=== PATIENT | male | born 1950 | race Caucasian/White ===

== ENCOUNTER 2020-04-22 08:21 | Outpatient (CLI) | payer OTHER, MEDICARE, SELFPAY ==
--- NOTE | 2020-04-22 09:00 | CT_ITS ---
WS: [id number] CT CHEST WITH INTRAVENOUS CONTRAST HISTORY: ascending aortic aneurysm TECHNIQUE: Contiguous 5 mm axial imaging performed on the thorax. Coronal and sagittal reformats are submitted. All CT scans at [facility] use at least one of these dose optimization techniq ues: automated exposure control; mA and/or kV adjustment per patient size (includes targeted exams wh ere dose is matched to clinical indication); or iterative reconstruction. CONTRAST: Omnipaque 300; 95 mL IV. DLP: 835.9 mGy.cm COMPARISON: None available. Lungs and central airway: Mild hyperexpansion from emphysema. There is some very mild groundglass att enuation in the posterior RIGHT upper lobe. Additional groundglass attenuation and minimal atelectasi s superior segment LEFT lower lobe and at the RIGHT costophrenic angle. Benign granuloma LEFT lower l obe. No pulmonary mass or nodule. Pleura: Normal. No pleural effusion. Heart and pericardium: Top normal size to slightly enlarged. No pericardial effusion. Moderate altamirano ry artery calcification. Mediastinum and pamela: No mediastinum or hilar adenopathy. Vessels: Normal size pulmonary artery. Ascending aorta is normal at 3.8 cm. No aneurysm. Normal calib er descending aorta. No dissection. Chest wall and lower neck: No soft tissue masses. Upper abdomen: No adrenal mass. Negative gallbladder. Small hiatal hernia. Osseous structures: Mild increase in thoracic kyphosis. Mild spondylitic changes thoracic spine. CT/CT chest w con* [id number] IMPRESSION: 1. No ascending aortic aneurysm. Maximum diameter ascending aorta is 3.8 cm. N o dissection. 2. Moderate coronary artery calcification. 3. Groundglass opacifications RIGHT upper lobe, lingula and at the RIGHT costo phrenic angle. Suspect mild pneumonitis or viral type pneumonia.
--- NOTE | 2020-04-22 09:30 | USCV_ITS ---
Sosa Sutton Age: 69 Gender: M : 1950 Exam Date: 04/22/2020 08:47 Ordering Phys: Carrington Galarza MD (Andy) ([email or web address]) Technologist: Maria Elena Saucedo [place] [facility] [place]: ascending aortic aneurysm BP: 137 / 73 HR: 92 Rhythm: Sinus Technical Quality: Adequate MEASUREMENTS (Male / Female) Normal Values 2D ECHO LV Diastolic Diameter PLAX 4.3 cm 4.2 - 5.9 / 3.9 - 5.3 cm LV Systolic Diameter PLAX 3.0 cm LV Chamber Size 3.6 cm IVS Diastolic Thickness 1.1 cm 0.6 - 1.0 / 0.6 - 0.9 cm IVS Systolic Thickness 1.4 cm LVPW Diastolic Thickness 1.9 cm 0.6 - 1.0 / 0.6 - 0.9 cm LVPW Systolic Thickness 1.9 cm RV Chamber Size 3.2 cm LVOT Diameter 2.1 cm LV Ejection Fraction 2D Teich 58.0 % LV Ejection Fraction MOD 2C 73.7 % LV Ejection Fraction 2C AL 74.2 % LA Diameter 3.2 cm LA Width 2.7 cm LA Height 4.6 cm RA Width 2.8 cm RA Height 4.7 cm Aorta at Sinotubular Diameter 4.0 cm M-MODE LV Diastolic Diameter MM 5.1 cm 4.2 - 5.9 / 3.9 - 5.3 cm LV Systolic Diameter MM 3.8 cm LV Ejection Fraction MM Teich 52.4 % IVS Diastolic Thickness MM 1.1 cm 0.6 - 1.0 / 0.6 - 0.9 cm IVS Systolic Thickness MM 1.4 cm LVPW Diastolic Thickness MM 1.2 cm 0.6 - 1.0 / 0.6 - 0.9 cm LVPW Systolic Thickness MM 1.6 cm Aortic Annulus Diameter 4.1 cm LA Ao Ratio MM 0.9 MV E Point Septal Separation 0.6 cm DOPPLER AV Peak Velocity 135.0 cm/s LVOT Peak Velocity 114.0 cm/s AV Area Cont Eq vti 3.1 cm squared AV Area Cont Eq pk 2.8 cm squared MV Area PHT 2.8 cm squared Mitral E to A Ratio 0.8 MV E' Velocity 31.0 cm/s Mitral E to MV E' Ratio 6.5 Mitral E to LV E' Lateral Ratio 5.0 Mitral E to LV E' Septal Ratio 9.2 TR Peak Velocity 308.3 cm/s TR Peak Gradient 38.0 mmHg TV Peak E Velocity 50.0 cm/s Right Atrial Pressure 3.0 mmHg Pulmonary Artery Systolic Pressu 41.0 mmHg PV Peak Velocity 85.0 cm/s RV Acceleration Time 0.1 s RV Ejection Time 0.3 s RV AcT/ET 0.4 FINDINGS Left Ventricle Normal left ventricular cavity size. Normal left ventricular systolic function. No regional wall motion abnormalities. Left ventricular ejection fraction is estimated at 55 %. Grade I/IV diastolic dysfunction (abnormal relaxation filling pattern), normal to mildly elevated filling pressures. Right Ventricle The right ventricle is normal in size and function. RVSP could not be calculated due to incomplete tricuspid regurgitation velocity profile. Right Atrium The right atrium is normal in size. Left Atrium The left atrium is normal in size. Mitral Valve Structurally normal mitral valve without significant stenosis or prolapse. There is no mitral regurgitation. Aortic Valve Structurally normal aortic valve without significant sclerosis or stenosis. There is no aortic regurgitation. Tricuspid Valve Structurally normal tricuspid valve without significant stenosis or regurgitation. Pulmonary artery systolic pressure is normal. Pulmonic Valve Structurally normal pulmonic valve without significant stenosis. There is no pulmonic regurgitation. Pericardium Normal pericardium without effusion. Aorta Normal ascending aorta dimension. CONCLUSIONS 1-Normal left ventricular cavity size. Normal left ventricular systolic function. No regional wall motion abnormalities. Left ventricular ejection fraction is estimated at 55 %. Grade I/IV diastolic dysfunction (abnormal relaxation filling pattern), normal to mildly elevated filling pressures. 2-No significant valve abnormalities. 3-There is no pericardial effusion. 4-The right ventricle is normal in size and function. RVSP could not be calculated due to incomplete tricuspid regurgitation velocity profile. 5-Right atrial pressure is around 5 mm of mercury. 6-There are no prior echocardiogram studies to compare. Jairon Bruce MD (Electronically Signed) Final Date: 22 April 2020 19:30 S
[2020-04-22 09:55] LABS: Glomerular Filtration Rate 83.9 mL/min (90-130)
[2020-04-22] MEDS: iohexol 300 mg/mL 100 mL Btl IV (10:11)
== END 2020-04-22 08:22 | disposition home or self-care (01) ==
PROVIDERS: PCP Family Medicine; Visit Provider Thoracic Surgery (Cardiothoracic Vascular Surgery)
DX: I71.2 Thoracic aortic aneurysm, without rupture (principal); I07.1 Rheumatic tricuspid insufficiency; I25.10 Atherosclerotic heart disease of native coronary artery without angina pectoris
CPT/HCPCS: 36415; 71260; 82565; 93306

== ENCOUNTER → 2020-10-12 14:13 | Outpatient (BNVA) | payer MEDICARE, SELFPAY | PROVIDERS: PCP Family Medicine; Referring Provider Family Medicine; Visit Provider Podiatrist Foot & Ankle Surgery | DX: M25.572 Pain in left ankle and joints of left foot (principal) | CPT/HCPCS: 73630 ==

== ENCOUNTER 2021-12-22 07:53 | Outpatient (CLI) | payer OTHER, SELFPAY ==
--- NOTE | 2021-12-22 08:30 | CT_ITS ---
WS: [id number] CTA THORACIC AORTA WITH AND WITHOUT CONTRAST HISTORY: thoracic aortic aneurysm TECHNIQUE: CT imaging of the thorax is performed with and without contrast. After noncontrast imaging is performed, CT angiogram is performed during injection of Omnipaque 300; 95 mL IV.. Sagittal and c oronal reconstructions, sagittal and coronal MIP imaging is submitted. All CT scans at [facility] use at least one of these dose optimization techniques: automated exposure control; mA and/or kV adjustment per patient size (includes targeted exams where dose is matched to clinical indication); or iterative reconstruction. DLP: 1263.09 mGy.cm COMPARISON: 04/22/2020 Very good opacification of the thoracic aorta with contrast. The maximum ascending diameter is 4.1 cm . Descending thoracic aorta is 2.6 cm. The diameter has increased approximately 3 mm since the prior examination. There is minimal dilatation. Minimal atherosclerotic disease. No dissection or ulceratin g plaque. No dissection. LEFT vertebral artery arises directly from the aorta. Normal size pulmonary artery. No filling defect. Heart size is normal. No mediastinal or hilar adenopathy. Central LEFT jeff g granuloma. No mass or pneumonia. No pericardial or pleural effusions. Small hiatal hernia. Visualized upper abdomen is negative. No adrenal mass. Negative gallbladder. No destructive bone lesions. CT/CT angio chest [id number] IMPRESSION: 1. 3 mm increases in diameter of the ascending thoracic aorta now measuring 4. 1 cm. This represents a very minimal dilatation of the ascending aorta. No sign ificant atherosclerotic plaque. 2. Small hiatal hernia. 3. No pericardial or pleural effusions.
[2021-12-22 08:41] LABS: Blood Urea Nitrogen 16 mg/dL (8-23); Glomerular Filtration Rate 73.9 mL/min (90-130)
[2021-12-22] MEDS: iohexol 350 mg/mL 100 mL Btl IV (08:52)
== END 2021-12-22 07:54 | disposition home or self-care (01) ==
LOC: RAD 07:53
PROVIDERS: PCP Family Medicine; Visit Provider Thoracic Surgery (Cardiothoracic Vascular Surgery)
DX: I71.2 Thoracic aortic aneurysm, without rupture (principal); K44.9 Diaphragmatic hernia without obstruction or gangrene
CPT/HCPCS: 71275; 82565; 84520

== ENCOUNTER → 2022-06-29 09:26 | Outpatient (BNVA) | payer OTHER, SELFPAY | PROVIDERS: PCP Nurse Practitioner; Referring Provider Nurse Practitioner; Visit Provider Specialist | DX: G56.03 Carpal tunnel syndrome, bilateral upper limbs (principal) | CPT/HCPCS: 95910; 95912 ==

== ENCOUNTER → 2022-09-12 09:09 | Outpatient (BNVA) | payer OTHER, SELFPAY | PROVIDERS: PCP Nurse Practitioner; Referring Provider Nurse Practitioner; Visit Provider Student in an Organized Health Care Education/Training Program | DX: G56.03 Carpal tunnel syndrome, bilateral upper limbs (principal) | CPT/HCPCS: 73110 ==

== ENCOUNTER 2022-09-12 14:10 | Outpatient (CLI) | payer OTHER, SELFPAY | END 2022-09-12 14:11 | disposition home or self-care (01) | LOC: SPT 14:11 | PROVIDERS: PCP Nurse Practitioner; Visit Provider Student in an Organized Health Care Education/Training Program | DX: Z46.89 Encounter for fitting and adjustment of other specified devices (principal); G56.03 Carpal tunnel syndrome, bilateral upper limbs | CPT/HCPCS: 20526; 20610; 97760; 99204; L3908 ==

== ENCOUNTER 2022-12-12 14:06 | Outpatient (CLI) | payer OTHER, SELFPAY ==
--- NOTE | 2022-12-12 14:30 | CT_ITS ---
WS: [id number] CTA THORACIC TECHNIQUE: Contrast enhanced CTA of the thoracic aorta with coronal and sagittal reformatted images a nd maximum intensity projection (MIP) images. CLINICAL INFORMATION: ascending aortic aneurysm COMPARISON: CTA chest December 22, 2021 DLP: 685.[address] scans at [facility] use at least one of these dose optimization techniques: automated e xposure control; mA and/or kV adjustment per patient size (includes targeted exams where dose is matc hed to clinical indication); or iterative reconstruction. FINDINGS: Ascending thoracic aorta measures 4.1 cm. This is unchanged since December 22, 2021. Normal caliber aorti c arch and descending thoracic aorta. Celiac and SMA are patent in the upper abdominal aorta. Small e sophageal hiatal hernia. Tiny hepatic cyst in the dome the liver. Tiny RIGHT adrenal adenoma. LEFT ad renal gland is normal. Normal thyroid enhancement. No mediastinal or hilar lymphadenopathy. No axilla ry lymphadenopathy. Mild chronic emphysematous changes. No acute pulmonary infiltrates. Calcified granuloma LEFT lower lo be. Subsegmental atelectasis in the lung bases. CT/CT angio chest [id number] IMPRESSION: 1. Ascending thoracic aorta measures 4.1 cm. This is unchanged since December 22, 2021. 2. No acute pulmonary infiltrates. 3. Small esophageal hiatal hernia. 4. No other significant interval changes.
[2022-12-12 15:09] LABS: Blood Urea Nitrogen 19 mg/dL (8-23)
[2022-12-12] MEDS: iohexol 350 mg/mL 500 mL Btl (per mL) IV (15:20)
== END 2022-12-12 14:07 | disposition home or self-care (01) ==
LOC: RAD 14:08
PROVIDERS: PCP Nurse Practitioner; Visit Provider Thoracic Surgery (Cardiothoracic Vascular Surgery)
DX: I71.21 Aneurysm of the ascending aorta, without rupture (principal); K44.9 Diaphragmatic hernia without obstruction or gangrene
CPT/HCPCS: 71275; 82565; 84520; Q9967

== ENCOUNTER → 2023-01-13 09:06 | Outpatient (BNVA) | payer MEDICARE, SELFPAY | PROVIDERS: PCP Family Medicine; Visit Provider Student in an Organized Health Care Education/Training Program | DX: G56.03 Carpal tunnel syndrome, bilateral upper limbs (principal) | CPT/HCPCS: 99214 ==

== ENCOUNTER → 2023-01-19 09:23 | Outpatient (BNVA) | payer OTHER, SELFPAY | PROVIDERS: PCP Family Medicine; Visit Provider Thoracic Surgery (Cardiothoracic Vascular Surgery) | DX: I71.21 Aneurysm of the ascending aorta, without rupture (principal) | CPT/HCPCS: 99213 ==

== ENCOUNTER → 2023-01-24 07:46 | Outpatient (BNVA) | payer OTHER, SELFPAY | PROVIDERS: PCP Family Medicine; Visit Provider Physician Assistant | DX: M65.322 Trigger finger, left index finger (principal) | CPT/HCPCS: 99214 ==

== ENCOUNTER 2023-02-02 06:11 | Day surgery (SDC) | payer OTHER, SELFPAY ==
[2023-02-01 12:16] VITALS: BMI 25.7
[2023-02-02] VITALS (7 sets, daily range): BP systolic 111–177; BP diastolic 74–93; PULSE 49–97; RESP 10–17; TEMP 36.1–36.6; O2SAT 95–99
[2023-02-02] MEDS: ketorolac 30 mg/mL INJ IVP (06:33)
[2023-02-02] MEDS: sodium chloride 0.9% 1,000 ML 30 ML IV (06:33)
[2023-02-02] MEDS: acetaminophen 1,000 MG/100 ML PIGGYBACK 400 MG IV (06:34)
--- NOTE | 2023-02-02 07:06 | W.PM.OPSUD ---
Surgery/Procedure H&P Update DATE OF PROCEDURE: February 02, 2023 DATE H&P PERFORMED: 01/24/23 CHANGES TO PREVIOUS DOCUMENTATION: None. No change in HPI visit from 01/24/2023. Patient has left carpal tunnel syndrome and left index finger trigger. He understands the ins and outs of procedure the risk benefits complication alternatives of surgery through shared decision-making elects proceed with surgical intervention of left carpal tunnel release and left index finger trigger release. PREOP DIAGNOSIS: Left Carpal Tunnel syndrome and left index finger trigger PRIMARY INDICATION FOR PROCEDURE: Left carpal tunnel syndrome and left index trigger finger PLANNED PROCEDURE: Operation Date: 02/02/23 07:55 Proposed Procedures p LEFT CARPAL TUNNEL RELEASE 82353, G56.03(Left) - See Cooper DO s Left index finger trigger release 04041,M65.322(Left) - See Cooper DO
--- NOTE | 2023-02-02 07:13 | ANES.PREANE2 ---
Pre-Anesthetic Assessment Height/Weight: Height 1.88 m Weight 90.718 kg Temp Pulse Resp BP Pulse Ox O2 Del Method 97.9 F 64 17 177/93 97 Room Air 02/02/23 06:19 02/02/23 06:19 02/02/23 06:19 02/02/23 06:19 02/02/23 06:19 02/02/23 06:19 Preop Diagnosis: Left Carpal Tunnel syndrome and left index finger trigger Operation Date: 02/02/23 07:55 Proposed Procedures p LEFT CARPAL TUNNEL RELEASE 20682, G56.03(Left) - See Bedford, DO s Left index finger trigger release 52818,M65.322(Left) - See Bedford, DO Familial anesthetic complications: None Was Beta Josiah taken within 24 hours: N/A Was Clonidine taken within 24 hours: N/A Last intake: Intake Last Liquid Date 02/01/23 Last Liquid Time 17:30 Last Solid Date 02/01/23 Last Solid Time 17:30 Social No alcohol and No tobacco Exam alert, oriented x 3, clear to auscultation bilaterally and regular rate & rhythm Airway Mallampati: Class III Dentition: full CV/HEM AAA monitored, stable GI Gastroesophageal Reflux Disease (occasional heartburn) Anesthetic Plan ASA status: 2 Anesthesia: MAC Risk of > 500 ml blood loss (7ml/kg in children): No Medications/Allergies Home Medications Medication Instructions Recorded Confirmed Last Taken Type omeprazole 20 mg tablet,delayed 20 mg PO DAILY PRN Indigestion 06/29/22 02/02/23 01/26/23 History release 2 Cock up Splints #1 ea 09/12/22 01/24/23 Unknown Rx Allergies Allergy/AdvReac Type Severity Reaction Status Date / Time terbinafine [From Lamisil] Allergy Severe Unresponsiv Verified 01/24/23 07:51 e Current Medications Generic Name Dose Route Start Last Admin Trade Name Freq PRN Reason Stop Dose Admin Sodium Chloride 1,000 mls @ 30 mls/hr 02/02/23 06:15 02/02/23 06:33 Sodium Chloride 0.9% IV 02/03/23 06:14 30 mls/hr .Q24H JANNIE Administration PFSH Anesthesia Medical History Ascending aortic aneurysm Surgical History No pertinent past surgical history Family History Other Ascending aortic aneurysm Social History Smoking and tobacco status: never smoked Alcohol intake: never Substance/Drug Use: never Lives independently: Yes Household members: spouse Housing: House Marital status: Marital status details: 09/04/1976 Additional social history: Lizbet Rogers is daughter Data Anesthesia Cardiac Studies: Echocardiogram Ultrasound 04/22/20
[2023-02-02] MEDS: ceFAZolin 2,000 MG in sodium chloride 0.9% (plus) 50 ML 100 MG IV (07:52)
[2023-02-02] MEDS: BUPivacaine 0.5% INJ 10 mL INJECTION (08:28)
[2023-02-02] MEDS: ROPivacaine 0.5% SDV 30 mL 150 MG INJECTION (08:28)
[2023-02-02] MEDS: lidocaine-epi 1% 20 mL INJ INJECTION (08:28)
--- NOTE | 2023-02-02 08:33 | PM.OP2 ---
Brief Operative Note Date of procedure: 02/02/23 Pre-op diagnosis: Left carpal tunnel syndrome, left index finger trigger Post-op diagnosis: same Procedure Done: Left carpal tunnel release Left index finger trigger release Surgeon: See Cooper Estimated blood loss (mL): 2 Complications: None Post-op Plan: Patient taken to PACU in stable condition recovering well pain controlled. Patient received appropriate discharge instructions as well as pain medication postoperatively. We will follow-up in the orthopedic office in 2 weeks. Condition: stable Disposition: same day Coding Level of Care Code Acute Code for Lashonda Taylor
--- NOTE | 2023-02-02 08:34 | P.PCN_ITS ---
PACU note Narrative: Patient taken to PACU in stable condition recovering well pain controlled. Dressings on in place clean dry and intact. Patient's fingertips are warm well- perfused brisk cap refill less than 2 seconds patient has decreased sensation to the hand secondary to local anesthesia. Patient is able to wiggle fingers. Exam: awake Disposition: discharged
--- NOTE | 2023-02-02 08:35 | PM.OP ---
Operative Report Date of procedure: February 02, 2023 Surgeon: See Cooper DO Procedure: Post-op diagnosis: Same Procedure done: 1.?Left carpal tunnel release 2. Left index finger trigger release Surgeon: See Cooper DO Anesthesia: MAC (Local) Estimated blood?loss: [2mL Tourniquet time [12]minutes IV fluids: See anesthesia record Complications: None Findings: See operative report narrative Condition: stable Disposition: same day Brief History: Patient is a pleasant [72]year-old [male?with?left carpal tunnel syndrome and left index finger trigger.? Patient has been worked up in the outpatient setting findings and physical examination consistent with this.? Patient nerve?conduction studies consistent with carpal tunnel syndrome.? We detailed?out?patient's risk benefits complication alternatives with surgical and?nonsurgical treatment options. Through shared decision making, patient?agrees to proceed with surgical intervention of the?left carpal tunnel release .? Patient understands and agrees with current plan.? All questions answered.? Patient elects to proceed with surgical intervention with carpal tunnel release. Procedure: Patient seen and evaluated in the preoperative holding area.? Consent was reviewed and signed with patient.? Correct extremity was marked.? Patient was seen evaluated by the anesthesia department once cleared for surgery was brought back to the operative suite.? Patient was kept on [facility] in supine position all bony prominences were well-padded patient properly secured to the bed.??Left upper extremity was then placed onto an armboard.? A nonsterile tourniquet was applied to the?left upper arm.? Patient underwent anesthesia per the anesthesia department.? Patient's?left upper extremity was then prepped and draped in standard orthopedic fashion.? Final timeout performed.? Patient received appropriate preoperative antibiotics. Under sterile aseptic technique patient received?local anesthesia over the preplanned carpal tunnel incision site and left index finger trigger incision. Esmarch was used to exsanguinate the?left upper extremity and tourniquet was insufflated to 250 mmHg. A standard mini open?left carpal tunnel incision was made.? Starting distally at Richardson's cardinal?line in?line with the fourth ray extending proximally distal to the wrist crease centered over the carpal tunnel.? Sharp scalpel incision was made through skin and subcutaneous tissue.? Self-retaining retractor was placed and the palmar fascia was identified.? This was then split?longitudinally and direct visualization of the transverse carpal?ligament was then made.? I then utilizing scalpel feathered through the transverse carpal?ligament until I entered the floor of the transverse carpal tunnel?ligament into the carpal tunnel.? Next I switched to dissection scissors and completed my release of the transverse carpal?ligament distally with care to protect the recurrent motor branch.? I completely released into the palmar fat and until no entrapment was noted distally.? Care was made to protect the superficial palmar arch during my distal dissection.? Next attention was made towards the proximal dissection I placed a nasal speculum proximally to retract all soft tissue with direct visualization of the transverse carpal ligament proximally. Next I then placed a Rapelje underneath the transverse carpal tunnel?ligament to protect the contents of the carpal tunnel and subsequently utilizing dissection scissors under?loupe magnification completely released the transverse carpal?ligament proximally into the median antebrachial fascia.? Care was made to protect the palmar cutaneous branch by keeping my scissors curved ulnarly.? Once completely released, I then placed my Rapelje and had appropriate decompression of the carpal tunnel proximally as well as distally.? I then inspected the contents of the carpal tunnel which showed an hourglass shape of the median nerve showing its compression.? No masses were noted.? Tendons appeared healthy.? Wound was then thoroughly irrigated.? Attention then turned towards left index finger trigger release. Once appropriately anesthetized a standard oblique incision was made centering over the A1 juli following patient's flexor crease.? Sharp scalpel incision was made only through skin and then switched to Littler dissection scissors and spread longitudinally directly over the flexor tendon sheath.? I then mobilized both radially and ulnarly and Kasdan retractors were used and placed by my assistant news director to protect neurovascular bundle.? Next I visualized the A1 juli and this was incised with a scalpel.? I then switched to dissection scissors and released the A1 juli both proximally as well as distally to its entirety.? Significant tendon sheath fluid was noted consistent with inflammation.? Mild fraying of the flexor tendons noted but no tear.? At this point I utilized a rag nail and pulled the tendons FDS and FDP out of the incision and no?triggering was noted.? I then had anesthesia wake up the patient and patient was able to actively flex and extend with no?triggering.? This point thorough irrigation was performed.? Tourniquet deflated.? Hemostasis satisfactory with bipolar electrocautery.? I then closed the incisions with interrupted nylon stitches.? Xeroform 4 x 4's and a bulky soft dressing was applied to the?left upper extremity.? Patient was then awakened from anesthesia and taken to PACU in stable condition.? Patient tolerated procedure without complications. Disposition: Patient taken to PACU in stable condition recovering well.? Dressing clean dry and intact.? Patient will receive appropriate discharge instructions as well as pain medication postoperatively.? Patient to follow-up with me in the office in 2 weeks.? They understand they may be weightbearing as tolerated to the?left hand.? Patient should keep incision clean dry and intact.? Patient understands if any questions or concerns may contact the office.
--- NOTE | 2023-02-02 09:50 | ANE.PACU2 ---
Inpatient post-anesthesia follow up: Airway intact: Yes Vital signs: Temperature 97.7 F Pulse Rate 49 Respiratory Rate 16 Blood Pressure 147/89 Pulse Oximetry 98 Oxygen Delivery Me thod Room Air Oxygen Flow Rate 6 Fraction of Inspir ed Oxygen Hydration adequate: Yes Nausea and vomiting: No Pain level: 1 Mental status: Baseline
== END 2023-02-02 09:50 | disposition home or self-care (01) ==
PROVIDERS: PCP Family Medicine; Visit Provider Student in an Organized Health Care Education/Training Program
PROC: (CPT 64721; principal; 2023-02-02 07:45)
PROC: (CPT 26055; 2023-02-02 07:45)
DX: G56.02 Carpal tunnel syndrome, left upper limb (principal); M65.322 Trigger finger, left index finger; K21.9 Gastro-esophageal reflux disease without esophagitis
CPT/HCPCS: 26055; 64721; J0131; J0690; J1885; J2371; J2704; J2795; J3010; J3490; J7030

== ENCOUNTER → 2023-02-21 07:10 | Outpatient (BNVA) | payer OTHER, SELFPAY | PROVIDERS: PCP Family Medicine; Visit Provider Student in an Organized Health Care Education/Training Program | DX: M65.322 Trigger finger, left index finger (principal); G56.03 Carpal tunnel syndrome, bilateral upper limbs | CPT/HCPCS: 99213 ==

== ENCOUNTER → 2023-05-17 10:29 | Outpatient (BNVA) | payer OTHER, SELFPAY | PROVIDERS: PCP Family Medicine; Visit Provider Nurse Practitioner Family | DX: L57.0 Actinic keratosis (principal); L82.0 Inflamed seborrheic keratosis; L85.3 Xerosis cutis; L82.1 Other seborrheic keratosis; L81.4 Other melanin hyperpigmentation; L57.8 Other skin changes due to chronic exposure to nonionizing radiation | CPT/HCPCS: 17000; 17110; 99213 ==

== ENCOUNTER → 2023-05-26 10:52 | Outpatient (BNVA) | payer OTHER, SELFPAY | PROVIDERS: PCP Family Medicine; Visit Provider Student in an Organized Health Care Education/Training Program | DX: G56.01 Carpal tunnel syndrome, right upper limb (principal) | CPT/HCPCS: 20526; 20600; 99214; J3301; J3490 ==

== ENCOUNTER → 2023-07-25 09:36 | Outpatient (BNVA) | payer OTHER, SELFPAY | PROVIDERS: PCP Internal Medicine; Visit Provider Nurse Practitioner Family | DX: L57.0 Actinic keratosis (principal); L85.3 Xerosis cutis; L82.1 Other seborrheic keratosis; L81.4 Other melanin hyperpigmentation; L57.8 Other skin changes due to chronic exposure to nonionizing radiation | CPT/HCPCS: 17000; 99213 ==

== ENCOUNTER 2023-09-21 09:10 | Outpatient (CLI) | payer OTHER, SELFPAY ==
--- NOTE | 2023-09-21 09:15 | USCV_ITS ---
Sosa Sutton Age: 73 Gender: M : 1950 Exam Date: 09/21/2023 09:27 Ordering Phys: Jessica Zavaleta Technologist: ANN-MARIE Exam Location: [facility] – [place] Indication: Screening HISTORY: Diameter (cm) AP x Transverse x Length Velocity (cm/s) Waveform Prox Aorta: 1.67 x 2.08 x 103.20 Triphasic Mid Aorta: 1.65 x 1.90 x 87.90 Triphasic Distal Aorta: 1.73 x 2.03 x 69.70 Triphasic Right Iliac Prox: 1.09 x 1.03 x 128.30 Triphasic Left Iliac Prox: 1.06 x 1.07 x 134.90 Triphasic Stent Prox Landing x x Aneurysmal Sac Max x x Lt Lat Sac Dim Rt Lat Sac Dim Stent Dist Landing x x Right Iliac Stent x x Left Iliac Stent x x Right Renal Art Left Renal Art FINDINGS: Comparison: none available. No evidence of abdominal aortic or bilateral iliac aneurysm. Ectatic abdominal aorta with evidence of atherosclerotic plaque noted. CONCLUSIONS No evidence of abdominal aortic aneurysm. Dr. Sandra Gonzalez DO (Electronically Signed) Final Date: 21 September 2023 10:22 S
== END 2023-09-21 09:11 | disposition home or self-care (01) ==
LOC: RAD 09:11
PROVIDERS: PCP Internal Medicine; Visit Provider Nurse Practitioner
DX: Z13.6 Encounter for screening for cardiovascular disorders (principal)
CPT/HCPCS: 76706

== ENCOUNTER → 2023-11-21 09:00 | Outpatient (BNVA) | payer OTHER, SELFPAY | PROVIDERS: PCP Internal Medicine; Visit Provider Student in an Organized Health Care Education/Training Program | DX: G56.01 Carpal tunnel syndrome, right upper limb (principal) | CPT/HCPCS: 20600; 99214; J3301; J3490 ==

== ENCOUNTER → 2024-02-27 12:52 | Outpatient (BNVA) | payer OTHER, SELFPAY | PROVIDERS: PCP Internal Medicine; Visit Provider Student in an Organized Health Care Education/Training Program | DX: G56.01 Carpal tunnel syndrome, right upper limb (principal) | CPT/HCPCS: 99214 ==

== ENCOUNTER 2024-03-18 11:50 | Day surgery (SDC) | payer OTHER, SELFPAY ==
[2024-03-18] VITALS (9 sets, daily range): BP systolic 114–139; BP diastolic 59–92; PULSE 53–64; RESP 16–18; TEMP 36.1–36.8; O2SAT 95–100; BMI 25.7
--- NOTE | 2024-03-18 12:18 | ANES.PREANE2 ---
Pre-Anesthetic Assessment Height/Weight: Height 1.88 m Operation Date: 03/18/24 13:30 Proposed Procedures p Carpal Tunnel Release(Right) - See Cooper DO Familial anesthetic complications: none Was Beta Josiah taken within 24 hours: N/A Was Clonidine taken within 24 hours: N/A Last intake: > 8 hrs Social No alcohol and No tobacco Exam alert, oriented x 3, clear to auscultation bilaterally and regular rate & rhythm Airway Mallampati: Class II Dentition: full CV/HEM AAA GI Gastroesophageal Reflux Disease Metabolic Diabetes Mellitus Anesthetic Plan ASA status: 3 Anesthesia: MAC Risk of > 500 ml blood loss (7ml/kg in children): No Medications/Allergies Home Medications Medication Instructions Recorded Confirmed Last Taken Type omeprazole 20 mg tablet,delayed 20 mg PO DAILY PRN Indigestion 06/29/22 03/15/24 03/08/24 History release ondansetron 4 mg disintegrating 4 mg PO Q8H PRN nausea and 03/18/24 Unknown Rx tablet vomiting 3 days #9 tabs tramadol 50 mg tablet 50 mg PO Q6H PRN pain #20 tabs 03/18/24 Unknown Rx Allergies Allergy/AdvReac Type Severity Reaction Status Date / Time terbinafine [From Lamisil] Allergy Severe Unresponsiv Verified 03/18/24 12:06 e PFSH Anesthesia Medical History Ascending aortic aneurysm Surgical History No pertinent past surgical history Family History Other Ascending aortic aneurysm Social History Smoking and tobacco/nicotine status: never used tobacco/nicotine Alcohol intake: never Substance/Drug Use: never Additional social history: Lizbet Rogers is daughter Lives independently: Yes Household members: spouse Housing: House Marital status: Marital status details: 09/04/1976 Data Anesthesia Cardiac Studies: Echocardiogram Ultrasound 04/22/20
[2024-03-18] MEDS: sodium chloride 0.9% 1,000 ML 30 ML IV (12:20)
[2024-03-18] MEDS: ketorolac 30 mg/mL INJ IVP (12:23)
[2024-03-18] MEDS: acetaminophen 1,000 MG/100 ML PIGGYBACK 400 MG IV (12:23)
[2024-03-18] MEDS: scopolamine 1.5 Patch 1 PATCH TRANSDERMA (12:25)
--- NOTE | 2024-03-18 13:29 | W.PM.OPSUD ---
Surgery/Procedure H&P Update DATE OF PROCEDURE: March 18, 2024 DATE H&P PERFORMED: 02/27/24 H&P UPDATE INFORMATION: I have reviewed H&P completed within last 30 days, I have examined patient prior to procedure and No changes to prior documentation PREOP DIAGNOSIS: Right carpal tunnel syndrome PRIMARY INDICATION FOR PROCEDURE: Right carpal tunnel syndrome PLANNED PROCEDURE: Operation Date: 03/18/24 13:30 Proposed Procedures p Carpal Tunnel Release(Right) - See Cooper DO
[2024-03-18] MEDS: ceFAZolin 2,000 MG in sodium chloride 0.9% (plus) 50 ML 100 MG IV (13:40)
[2024-03-18] MEDS: ROPivacaine 0.5% SDV 30 mL 15 MG INJECTION (13:55)
[2024-03-18] MEDS: lidocaine 1% 10 ML INJ 3 ML INJECTION (13:55)
--- NOTE | 2024-03-18 14:10 | PM.OP ---
Operative Report Date of procedure: March 18, 2024 Surgeon: See Cooper DO Aircraft Detail Draftsperson: Toby Cooper PA-C: PA was necessary for assistance in this case with hand positioning to execute the procedure, retraction and protection of neurovascular structures as well as to assist with wound closure and dressing application. Procedure: Preop Diagnosis: Right Carpal Tunnel Syndrome Post-op diagnosis: Same Procedure done: 1. Right carpal tunnel release Surgeon: See Cooper DO Anesthesia: MAC (Local) Estimated blood loss: 5 mL Tourniquet time 5 minutes IV fluids: See anesthesia record Complications: None Findings: See operative report narrative Condition: stable Disposition: same day Brief History: Patient is a pleasant 73 year-old male with right carpal tunnel syndrome. Patient has been worked up in the outpatient setting findings and physical examination consistent with this. Patient nerve conduction studies consistent with carpal tunnel syndrome. We detailed out patient's risk benefits complication alternatives with surgical and nonsurgical treatment options. Through shared decision making, patient agrees to proceed with surgical intervention of the right carpal tunnel release . Patient understands and agrees with current plan. All questions answered. Patient elects to proceed with surgical intervention. Procedure: Patient seen and evaluated in the preoperative holding area. Consent was reviewed and signed with patient. Correct extremity was marked. Patient was seen evaluated by the anesthesia department once cleared for surgery was brought back to the operative suite. Patient was kept on [facility] in supine position all bony prominences were well-padded patient properly secured to the bed. Right upper extremity was then placed onto an armboard. A nonsterile tourniquet was applied to the Right upper arm. Patient underwent anesthesia per the anesthesia department. Patient's Right upper extremity was then prepped and draped in standard orthopedic fashion. Final timeout performed. Patient received appropriate preoperative antibiotics. Under sterile aseptic technique patient received local anesthesia over the preplanned carpal tunnel incision site. Esmarch was used to exsanguinate the Right upper extremity and tourniquet was insufflated to 250 mmHg. A standard mini open Right carpal tunnel incision was made. Starting distally at Richardson's cardinal line in line with the fourth ray extending proximally distal to the wrist crease centered over the carpal tunnel. Sharp scalpel incision was made through skin and subcutaneous tissue. Self-retaining retractor was placed and the palmar fascia was identified. This was then split longitudinally and direct visualization of the transverse carpal ligament was then made. I then utilizing scalpel feathered through the transverse carpal ligament until I entered the floor of the transverse carpal tunnel ligament into the carpal tunnel. Next I switched to dissection scissors and completed my release of the transverse carpal ligament distally with care to protect the recurrent motor branch. I completely released into the palmar fat and until no entrapment was noted distally. Care was made to protect the superficial palmar arch during my distal dissection. Next I utilized a nasal speculum placed on top of the transverse carpal ligament and utilize this to retract the subcutaneous fat and tissue and under direct loupe magnification was able to identify the transverse carpal ligament. Next I then protected the contents of the carpal tunnel and subsequently utilizing dissection scissors under loupe magnification completely released the transverse carpal ligament proximally into the antebrachial fascia. Care was made to protect the palmar cutaneous branch by keeping my scissors curved ulnarly. Once completely released, I then placed my [place] and had appropriate decompression of the carpal tunnel proximally as well as distally. I then inspected the contents of the carpal tunnel which showed an hourglass shape of the median nerve showing its compression. No masses were noted. Tendons appeared healthy. Wound was then thoroughly irrigated. Tourniquet deflated. Hemostasis satisfactory with bipolar electrocautery. I then closed the incision with interrupted nylon stitches. Xeroform 4 x 4's and a bulky soft dressing was applied. Patient was then awakened from anesthesia and taken to PACU in stable condition. Patient tolerated procedure without complications. Disposition: Patient taken to PACU in stable condition recovering well. Dressing clean dry and intact. Patient will receive appropriate discharge instructions as well as pain medication postoperatively. Patient to follow-up with me in the office in 2 weeks. They understand they may be weightbearing as tolerated to the right hand. Patient should keep incision clean dry and intact. Patient understands if any questions or concerns may contact the office.
--- NOTE | 2024-03-18 14:17 | P.BOP_ITS ---
Date of Procedure: [March 18, 2024] Surgeon: [Dr. Cooper DO] Dispensary Clerk(s): [Toby Cooper PA-C] Procedure(s) performed: [Right carpal tunnel release] Findings of the procedure(s): [Right carpal tunnel syndrome. Procedure went well and as planned.] Estimated blood loss: [5 mL] Specimen(s) removed: [N/A] Post-operative diagnosis: [Right carpal tunnel syndrome]
--- NOTE | 2024-03-18 14:21 | P.PCN_ITS ---
PACU note Narrative: Patient is a 73-year-old male that just underwent a right carpal tunnel release. Patient transferred to PACU in stable condition. Pain is well controlled. Dressing on hand is dry and in place. Patient's fingers are warm and well- perfused. Patient can wiggle fingers. normal cap refill under 2 seconds. Patient has normal elbow range of motion. Unable to assess sensation due to residual localized anesthetic. Exam: awake Disposition: discharged
--- NOTE | 2024-03-18 15:15 | ANE.PACU2 ---
Inpatient post-anesthesia follow up: Airway intact: Yes Vital signs: Temperature 97.8 F Pulse Rate 64 Respiratory Rate 18 Blood Pressure 133/78 Pulse Oximetry 97 Oxygen Delivery Me thod Room Air Oxygen Flow Rate 8 Fraction of Inspir ed Oxygen Hydration adequate: Yes Nausea and vomiting: No Pain level: 1 Mental status: Baseline
== END 2024-03-18 15:15 | disposition home or self-care (01) ==
PROVIDERS: PCP Nurse Practitioner; Visit Provider Student in an Organized Health Care Education/Training Program
PROC: (CPT 64721; principal; 2024-03-18 13:30)
DX: G56.01 Carpal tunnel syndrome, right upper limb (principal); K21.9 Gastro-esophageal reflux disease without esophagitis; E11.9 Type 2 diabetes mellitus without complications
CPT/HCPCS: 64721; J0131; J0690; J1885; J2704; J2795; J7030

== ENCOUNTER → 2024-04-02 14:40 | Outpatient (BNVA) | payer OTHER, SELFPAY | PROVIDERS: PCP Nurse Practitioner; Visit Provider Physician Assistant | DX: Z98.890 Other specified postprocedural states (principal); R03.0 Elevated blood-pressure reading, without diagnosis of hypertension | CPT/HCPCS: 99024 ==

== ENCOUNTER → 2024-07-25 08:44 | Outpatient (BNVA) | payer OTHER, SELFPAY | PROVIDERS: PCP Nurse Practitioner; Visit Provider Nurse Practitioner Family | DX: L82.1 Other seborrheic keratosis (principal); L57.8 Other skin changes due to chronic exposure to nonionizing radiation; L81.4 Other melanin hyperpigmentation; D18.01 Hemangioma of skin and subcutaneous tissue; D48.5 Neoplasm of uncertain behavior of skin | CPT/HCPCS: 11102; 17000; 99213 ==

== ENCOUNTER → 2024-12-02 15:28 | Outpatient (BNVA) | payer OTHER, SELFPAY | PROVIDERS: PCP Nurse Practitioner; Visit Provider Internal Medicine Cardiovascular Disease | DX: R07.9 Chest pain, unspecified (principal); R00.1 Bradycardia, unspecified | CPT/HCPCS: 93005 ==

== ENCOUNTER 2024-12-10 06:40 | Outpatient (CLI) | payer OTHER, SELFPAY ==
--- NOTE | 2024-12-10 07:00 | CT_ITS ---
WS: [id number] CTA THORACIC TECHNIQUE: Contrast enhanced CTA of the thoracic aorta with coronal and sagittal reformatted images and maximum intensity projection (MIP) images. CLINICAL INFORMATION: Ascending aortic aneurysm COMPARISON: 2022 DLP: 655.[address] scans at [facility] use at least one of these dose optimization techniques: automated exposure control; mA and/or kV adjustment per patient size (includes targeted exams where dose is matched to clinical indication); or iterative reconstruction. FINDINGS: The ascending thoracic aorta measures 4.2 cm in maximum dimension unchanged. Proximal main pulmonary arteries are normal. Cardiomegaly. Coronary calcification. LEFT vertebral artery arises from the aortic arch. No mediastinal or hilar lymphadenopathy. No axillary lymphadenopathy. Celiac and SMA are patent in the upper abdomen. Adrenal glands are normal. Tiny hepatic cyst. A few calcified granulomas. Atelectasis RIGHT lower lobe. CT/CT angio chest 57590 IMPRESSION: 1. The ascending thoracic aorta measures 4.2 cm in maximum dimension. This is stable since 2022. 2. Small esophageal hiatal hernia. 3. No other significant changes compared to previous
[2024-12-10 07:31] LABS: Blood Urea Nitrogen 18 mg/dL (8-23)
[2024-12-10] MEDS: iohexol 350 mg/mL 500 mL Btl (per mL) IV (07:32)
== END 2024-12-10 06:41 | disposition home or self-care (01) ==
LOC: RAD 06:41
PROVIDERS: PCP Nurse Practitioner; Visit Provider Internal Medicine Cardiovascular Disease
DX: I71.20 Thoracic aortic aneurysm, without rupture, unspecified (principal); K44.9 Diaphragmatic hernia without obstruction or gangrene
CPT/HCPCS: 71275; 82565; 84520

== ENCOUNTER → 2024-12-16 13:17 | Outpatient (BNVA) | payer OTHER, SELFPAY | PROVIDERS: PCP Nurse Practitioner; Visit Provider Nurse Practitioner Family | DX: L82.1 Other seborrheic keratosis (principal); L57.8 Other skin changes due to chronic exposure to nonionizing radiation; L81.4 Other melanin hyperpigmentation; L82.0 Inflamed seborrheic keratosis; L29.89 Other pruritus; R20.9 Unspecified disturbances of skin sensation; R20.8 Other disturbances of skin sensation; L53.8 Other specified erythematous conditions; D48.5 Neoplasm of uncertain behavior of skin; L57.0 Actinic keratosis | CPT/HCPCS: 11102; 17000; 17110; 99213 ==

== ENCOUNTER → 2025-03-13 11:00 | Outpatient (BNVA) | payer OTHER, SELFPAY | PROVIDERS: PCP Nurse Practitioner; Visit Provider Nurse Practitioner Family | DX: D04.39 Carcinoma in situ of skin of other parts of face (principal); L82.1 Other seborrheic keratosis; D18.01 Hemangioma of skin and subcutaneous tissue; L57.8 Other skin changes due to chronic exposure to nonionizing radiation; L81.4 Other melanin hyperpigmentation | CPT/HCPCS: 99213 ==